=== PATIENT | female | born 1960 | race Caucasian/White ===

== ENCOUNTER 2018-09-29 19:52 | Inpatient (IN) ==
--- NOTE | 2018-09-29 20:14 | ERNOTE ---
Neuro HPI ER Record Presenting Symptoms: other - medication overdose Time Seen by Provider: 09/29/18 20:00 Source: patient Exam Limitations: clinical condition Immunizations: IMMUNIZATION HX Immunizations Up to Date Yes History of Influenza Vaccine No Hx Pneumococcal Vaccination No Allergies/Adverse Reactions: Allergies Allergy/AdvReac Type Severity Reaction Status Date / Time acetaminophen Allergy Hives Verified 08/04/18 10:44 [Darvocet-N 100] propoxyphene [Darvocet-N 100] Allergy Hives Verified 08/04/18 10:44 gabapentin AdvReac Hallucinations. Verified 09/06/18 11:29 Bad dreams ibuprofen AdvReac at high Verified 09/06/18 11:29 doses causes GI upset pregabalin [From Lyrica] AdvReac Swelling Verified 09/06/18 11:29 all over venlafaxine [From Effexor] AdvReac Makes Verified 09/06/18 11:29 depression worse Home Medications: HOME MEDICATIONS Lansoprazole [Prevacid] 30 mg PO DAILY 04/02/15 [Last Taken Unknown] Atenolol [Tenormin] 50 mg PO BID 11/06/15 [Last Taken Unknown] amitriptyline 25 mg tablet 25 mg PO BID 10/12/17 [Last Taken Unknown] amlodipine 5 mg tablet 5 mg PO DAILY 10/12/17 [Last Taken Unknown] naproxen 500 mg tablet 500 mg PO BID 10/12/17 [Last Taken Unknown] omeprazole 20 mg capsule,delayed release 20 mg PO DAILY 10/12/17 [Last Taken Unknown] oxygen-air delivery systems device See Dose Instructions .ROUTE .MEDSUPPLY #1 10/12/17 [Last Taken Unknown] polyethylene glycol 3350 17 gram/dose oral powder 17 g PO DAILY g 10/12/17 [Last Taken Unknown] psyllium seed (sugar) oral powder See Rx Instructions PO DAILY 10/12/17 [Last Taken Unknown] cyclobenzaprine 10 mg tablet 10 mg PO HS #30 tab 08/04/18 [Last Taken Unknown] hydroxyzine pamoate 25 mg capsule 25 mg PO TID #90 cap 08/30/18 [Last Taken Unknown] hydroxyzine pamoate 50 mg capsule 50 mg PO TID #90 cap 08/30/18 [Last Taken Unknown] quetiapine 100 mg tablet 150 mg PO HS #45 tab 09/06/18 [Last Taken Unknown] dextroamphetamine-amphetamine 20 mg tablet 20 mg PO BID #60 tab 09/12/18 [Last Taken Unknown] brexpiprazole 3 mg tablet See Rx Instructions .ROUTE .COMPLEX #30 tablet 09/29/18 [Last Taken Unknown] duloxetine 20 mg capsule,delayed release See Rx Instructions .ROUTE .COMPLEX #60 capsule 09/29/18 [Last Taken Unknown] ropinirole 4 mg tablet See Rx Instructions .ROUTE .COMPLEX #90 tablet 09/29/18 [Last Taken Unknown] - History of Present Illness Narrative: Patient was brought in by EMS with history of seizure-like activity and found on arrival that she was excessively somnolent. Patient was recently had surgery and it appeared that she may have taken excessive amounts of her pain medication. EMS gave her Narcan in the ambulance and this did help her to wake up. She did have some emesis and there is concern that she also had aspiration. Patient had a 400 mil bottle of oxycodone 5 mg per 5 mil prescribed to her approximately 54 hours ago and she has consumed 310 mils for approximately 35 mils every 6 hours on average. Onset: gradual onset Severity: severe - Character of Deficits Additional Deficits: Present: impaired speech, off balance Baseline Cognition: Present: alert, oriented x 4 Baseline Gait: Present: walks w/o assistance Associated Symptoms: Reports: altered mental status, disoriented, confused Review of Systems - Narrative Narrative: Patient gives a lot of "I do not know" answers, even has difficulty remembering the surgery that she had 2 days ago - Review of Systems Constitutional: Present: chills ENT: Present: sore throat Respiratory: Present: shortness of breath Gastrointestinal/Abdominal: Present: vomiting - per EMS. Medical History (Updated 09/29/18 @ 21:45 by Benson Jack DO) Bipolar disorder (Chronic) Attention deficit disorder of adult with hyperactivity (Chronic) Generalized anxiety disorder (Chronic) Borderline personality disorder (Chronic) Bipolar affective disorder, current episode depressed (Chronic) Anxiety Arthritis Attention deficit hyperactivity disorder (ADHD) Back injury Back pain Bipolar affective disorder Bipolar disorder Borderline personality disorder Depression Diabetes mellitus Fibromyalgia Headache Hypertension Insomnia due to mental disorder Major depressive disorder, recurrent episode Neuropathic pain Obsessive compulsive disorder Psychosis Restless leg syndrome Thoracic spine pain Anemia Anorexia Hypokalemia Opioid withdrawal Paranoid schizophrenia (Resolved) Sinusitis, acute Surgical History: Surgical History (Updated 10/12/17 @ 17:53 by Krystal Lau LPN) H/O section H/O tubal ligation History of cholecystectomy History of neck surgery History of oophorectomy Hx of colonoscopy Family History: Family History (Updated 10/12/17 @ 17:55 by Krystal Lau LPN) Father CVA (cerebral vascular accident) Heart disease Hypertension Kidney disease Bleeding disorder Diabetes Mother Heart disease Hypertension FH: mental illness Diabetes Cancer Thyroid disease Brother FH: mental illness Social History: Preferred Language [place] Citizen Do you have any mu-ism or No cultural preference? Smoking Status Current every day smoker Abuse History Hx of Substance Use Psych History Hx of Anxiety,Hx of Depression,Hx of Suicide Attempt,Hx of Psychiatric Tx,Currently on Meds Alcohol Use none Drug Use none (Last Updated 09/06/18 @ 11:40 by Alla Jose [facility]) No Social History Section defined Physical Exam - Physical Exam General Appearance: Present: wd/wn, mild distress, lethargic Head Exam: Present: normal inspection, no evidence of injury Eye Exam: Normal inspection: bilateral Neck: Present: normal inspection, nontender Respiratory: Present: no accessory muscle use, wheezing Cardiovascular/Chest: Present: regular rate, rhythm, no murmur Extremity Exam: Present: normal inspection, normal range of motion Neurological Exam: Present: disoriented to place, disoriented to situation - improving over time Skin Exam: Present: normal color, warm/dry Lymphatic Exam: Present: no adenopathy [place] Coma Scale - Assess Eye Opening: Spontaneous Motor: Obeys Commands Verbal: Confused - Total Coma Scale Total: 14 Progress - Results and Orders Patient's Lab Results:: I have reviewed the patient's lab results. Results and Orders: Laboratory Tests 09/29/18 09/29/18 09/29/18 20:45 20:45 21:14 WBC 14.8 H Hgb 12.7 Hct 40.4 Plt Count 245 Neutrophils % 84.3 H Sodium 139 Potassium 4.5 Chloride 103 BUN 22 Creatinine 1.32 Random Glucose 206 H Calcium 9.3 Total Bilirubin 0.4 AST 368 H ALT 284 H Urine Color Yellow Urine Appearance Clear Urine pH 6.0 Ur Specific [place] 1.010 Urine Protein Negative Urine Glucose (UA) 100 H Urine Ketones Negative Urine Blood Negative Urine Nitrate Negative Ur Leukocyte Esterase Negative Salicylates 7.3 Urine Opiates Screen Acetaminophen Less than 0.2 L Barbiturate Screen Ur Phencyclidine Scrn Urine Amphetamine U Benzodiazepines Scrn Urine Cocaine Screen Urine Marijuana (THC) Ethyl Alcohol Less than 3.0 09/29/18 21:14 WBC Hgb Hct Plt Count Neutrophils % Sodium Potassium Chloride BUN Creatinine Random Glucose Calcium Total Bilirubin AST ALT Urine Color Urine Appearance Urine pH Ur Specific [place] Urine Protein Urine Glucose (UA) Urine Ketones Urine Blood Urine Nitrate Ur Leukocyte Esterase Salicylates Urine Opiates Screen Positive H Acetaminophen Barbiturate Screen Negative Ur Phencyclidine Scrn Negative Urine Amphetamine Negative U Benzodiazepines Scrn Positive H Urine Cocaine Screen Negative Urine Marijuana (THC) Negative Ethyl Alcohol - Vital Signs Vital Signs: Vital Signs 09/29/18 19:53 Temperature 36.4 C Pulse Rate 107 H Respiratory Rate 14 Blood Pressure 178/114 H O2 Sat by Pulse Oximetry 87 L - EKG EKG #1 EKG: NSR, no ST T wave changes EKG read: Interp. by me - X-Ray X-Ray #1 X-Ray: chest Interpretation: Interp. by me X-ray Comments: small hiatal hernia. possible aspiration right lower lobe. - Progress/Reassessment Chief Complaint: Seizure Activity Progress:: Improved Progress Note-Subjective: Pt memory and orientation improving. 09/29/18 21:[address] Richards she agrees with observation admit. 09/29/18 21:[address] Llamas of the admission on his surgical patient. He stated he will come see the patient here tomorrow. 09/29/18 22:22 Departure Clinical Impression: Hypoxia Accidental medication overdose Qualifiers: Encounter type: initial encounter Qualified Code(s): T50.901A - Poisoning by unspecified drugs, medicaments and biological substances, accidental (unintentional), initial encounter - Departure Disposition: Still a patient Condition: Stable
[2018-09-29 20:51] LABS: Hematocrit 40.4 % (37.0-47.0); Hemoglobin 12.7 gm/dL (12.5-16.0); Mean Cell Volume 94.6 fl (78-100); Mean Corpuscular Hemoglobin 29.7 pg (27-31); Mean Corpuscular Hgb Conc 31.4 g/dl (32-36); Mean Platelet Volume 9.8 fl (8-12.5); Neutrophil # 12.4 K/mm3 (1.3-6.0); Neutrophil % 84.3 % (42-75.0); Platelet Count 245 K/mm3 (150-450); Red Blood Count 4.27 M/mm3 (4.2-5.4); Red Cell Distribution Width 14.1 % (11.5-14.0); White Blood Count 14.8 K/mm3 (4.0-10.5)
[2018-09-29 21:14] LABS: ALT 284 U/L (19-67); AST 368 U/L (0-48); Albumin * 3.7 gm/dl (3.4-5.0); Alkaline Phosphatase * 137 U/L (50-170); Anion Gap 14.7 mmol/L (6.8-13.8); BUN/Creatinine Ratio 16.7 (9.0-21.6); Bilirubin, Total 0.4 mg/dL (0.0-1.1); Blood Urea Nitrogen 22 mg/dL (3-23); Ca. Corrected For Albumin 9.2 mg/dL (8.4-10.2); Calcium * 9.3 mg/dL (7.9-10.9); Carbon Dioxide 25.8 mmol/L (24-32.6); Chloride 103 mmol/L (97-106); Glucose * 206 mg/dL (70-110); Potassium 4.5 mmol/L (3.4-4.6); Salicylate 7.3 mg/dL (2.8-20.0); Sodium 139 mmol/L (132-142); Total Protein 7.2 gm/dL (6.2-8.2)
[2018-09-29 21:25] LABS: Urine Bilirubin Negative (NEGATIVE); Urine Blood Negative /ul (NEGATIVE); Urine Ketone Negative (NEGATIVE); Urine Nitrite Negative (NEGATIVE); Urine Protein Negative (NEGATIVE); Urine Urobilinogen Normal (NORMAL)
[2018-09-29 21:32] LABS: Urine Appearance Clear (CLEAR); Urine Bacteria None Seen; Urine Color Yellow; Urine RBC None Seen /hpf (0-5); Urine WBC None Seen /hpf (0-5)
[2018-09-29 21:45] LABS: Cocaine Ur Negative (NEGATIVE); Urine Barbiturate Negative (NEGATIVE); Urine Benzodiazepines Positive (NEGATIVE); Urine Opiates Positive (NEGATIVE); Urine PCP Negative (NEGATIVE); Urine THC Negative (NEGATIVE)
[2018-09-30 06:02] LABS: Albumin * 3.2 gm/dl (3.4-5.0); Anion Gap 9.9 mmol/L (6.8-13.8); BUN/Creatinine Ratio 18.1 (9.0-21.6); Bilirubin, Total 1.5 mg/dL (0.0-1.1); Ca. Corrected For Albumin 8.7 mg/dL (8.4-10.2); Calcium * 8.4 mg/dL (7.9-10.9); Carbon Dioxide 30.5 mmol/L (24-32.6); Potassium 4.4 mmol/L (3.4-4.6); Total Protein 6.6 gm/dL (6.2-8.2)
[2018-09-30 06:08] LABS: Hematocrit 35.3 % (37.0-47.0); Hemoglobin 11.4 gm/dL (12.5-16.0); Mean Cell Volume 94.4 fl (78-100); Mean Corpuscular Hemoglobin 30.5 pg (27-31); Mean Corpuscular Hgb Conc 32.3 g/dl (32-36); Mean Platelet Volume 9.8 fl (8-12.5); Neutrophil # 9.8 K/mm3 (1.3-6.0); Neutrophil % 85.2 % (42-75.0); Platelet Count 222 K/mm3 (150-450); Red Blood Count 3.74 M/mm3 (4.2-5.4); White Blood Count 11.5 K/mm3 (4.0-10.5)
--- NOTE | 2018-09-30 10:14 | HP ---
Chief Complaint - Chief Complaint Date of Service: 09/30/18 Time of Service: 09:43 Chief Complaint: overdose History of Present Illness: Patient with PMHx of bipolar disorder, depression, chronic back pain had a recent procedure 09/27/18 on her tonsils. EMS was called for possible seizure activity, and she was very somnolent. She did wake with narcan. She was given a 400 cc bottle of 5 mg/5 ml morphine after that procedure, and EMS reported only 91 cc remaining. She did not require further narcan in our ED. UDS was positive for opiates and benzos, but she is not prescribed benzos. PDMP checked, and she has not filled a benzo prescription. She was somnolent, but able to answer questions. She was able to oxygenate with 6 L via oxymask, and used her CPAP overnight. Admission labs show a few abnormalities with WBC of 14.8, AST of 368, ALT 284. Repeat labs this morning show WBC improved to 11.5, AST and ALT further increased to 448 and 399, respectively, bili elevated to 1.5, and alk phos increased to 183. On my exam this morning, she is alert and able to answer questions, but does not remember what happened yesterday. She admits to probably using her morphine too often to stop her throat pain. She also reports RUQ pain that started this morning. She was vomiting phlegm in the ambulance yesterday, but was able to eat breakfast this morning. Medical History (Updated 09/30/18 @ 10:14 by Jennifer Richards DO) Bipolar disorder (Chronic) Attention deficit disorder of adult with hyperactivity (Chronic) Generalized anxiety disorder (Chronic) Borderline personality disorder (Chronic) Bipolar affective disorder, current episode depressed (Chronic) Anxiety Arthritis Attention deficit hyperactivity disorder (ADHD) Back injury Back pain Bipolar affective disorder Bipolar disorder Borderline personality disorder Depression Diabetes mellitus Fibromyalgia Headache Hypertension Insomnia due to mental disorder Major depressive disorder, recurrent episode Neuropathic pain Obsessive compulsive disorder Psychosis Restless leg syndrome Thoracic spine pain Anemia Anorexia Hypokalemia Opioid withdrawal Paranoid schizophrenia (Resolved) Sinusitis, acute Surgical History: Surgical History (Updated 09/30/18 @ 10:14 by Jennifer Richards DO) H/O section H/O tubal ligation History of cholecystectomy History of neck surgery History of oophorectomy Hx of colonoscopy Family History: Family History (Updated 10/12/17 @ 17:55 by Krystal Lau LPN) Father CVA (cerebral vascular accident) Heart disease Hypertension Kidney disease Bleeding disorder Diabetes Mother Heart disease Hypertension FH: mental illness Diabetes Cancer Thyroid disease Brother FH: mental illness Social History: Patient Lives/Resources w/family Utilized Preferred Language [place] Do you have any gnosticist or Yes: Denominational cultural preference? Smoking Status Current every day smoker Have you smoked in the past 12 Yes months Do you dip or chew tobacco No Abuse History Hx of Substance Use Psych History Hx of Anxiety,Hx of Depression,Hx of Suicide Attempt,Hx of Psychiatric Tx,Currently on Meds Alcohol Use none Drug Use none (Last Updated 09/06/18 @ 11:40 by JULISSA Castro) No Social History Section defined Review Of Systems (GEN) - Review of Systems Generalized/Overall Review: Present: Diaphoresis - chronic. Absent: Fever EENTM: Present: Nose Congestion, Throat Pain Respiratory: Absent: Cough, Shortness of Breath Cardiac: Present: Edema - chronic. Absent: Chest Pain Abdominal: Present: Nausea, Vomiting Genitourinary: Present: No Symptoms Reported Musculoskeletal: Present: Back Pain Neurological: Present: Headache Skin: Present: No Symptoms Reported Immunizations: IMMUNIZATION HX Immunizations Up to Date Yes History of Influenza Vaccine No Hx Pneumococcal Vaccination No Allergies/Adverse Reactions: Allergies Allergy/AdvReac Type Severity Reaction Status Date / Time acetaminophen Allergy Hives Verified 08/04/18 10:44 [Darvocet-N 100] propoxyphene [Darvocet-N 100] Allergy Hives Verified 08/04/18 10:44 gabapentin AdvReac Hallucinations. Verified 09/06/18 11:29 Bad dreams ibuprofen AdvReac at high Verified 09/06/18 11:29 doses causes GI upset pregabalin [From Lyrica] AdvReac Swelling Verified 09/06/18 11:29 all over venlafaxine [From Effexor] AdvReac Makes Verified 09/06/18 11:29 depression worse Home Medications: HOME MEDICATIONS Atenolol [Tenormin] 50 mg PO BID 11/06/15 [Last Taken Unknown] amlodipine 5 mg tablet 5 mg PO DAILY 10/12/17 [Last Taken Unknown] naproxen 500 mg tablet 500 mg PO BID 10/12/17 [Last Taken Unknown] omeprazole 20 mg capsule,delayed release 20 mg PO DAILY 10/12/17 [Last Taken Unknown] oxygen-air delivery systems device See Dose Instructions .ROUTE .MEDSUPPLY #1 10/12/17 [Last Taken Unknown] polyethylene glycol 3350 17 gram/dose oral powder 17 g PO DAILY g 10/12/17 [Last Taken Unknown] psyllium seed (sugar) oral powder See Rx Instructions PO DAILY 10/12/17 [Last Taken Unknown] cyclobenzaprine 10 mg tablet 10 mg PO HS #30 tab 08/04/18 [Last Taken Unknown] hydroxyzine pamoate 25 mg capsule 25 mg PO TID #90 cap 08/30/18 [Last Taken Unknown] hydroxyzine pamoate 50 mg capsule 50 mg PO TID #90 cap 08/30/18 [Last Taken Unknown] quetiapine 100 mg tablet 150 mg PO HS #45 tab 09/06/18 [Last Taken Unknown] dextroamphetamine-amphetamine 20 mg tablet 20 mg PO BID #60 tab 09/12/18 [Last Taken Unknown] brexpiprazole 3 mg tablet See Rx Instructions .ROUTE .COMPLEX #30 tablet 09/29/18 [Last Taken Unknown] duloxetine 20 mg capsule,delayed release See Rx Instructions .ROUTE .COMPLEX #60 capsule 09/29/18 [Last Taken Unknown] ropinirole 4 mg tablet See Rx Instructions .ROUTE .COMPLEX #90 tablet 09/29/18 [Last Taken Unknown] Exam - Exam Vital Signs: Vital Signs - Last Taken Temp 36.8 C 09/30/18 06:50 Pulse 97 09/30/18 06:50 Resp 18 09/30/18 06:50 BP 141/81 H 09/30/18 06:50 Pulse Ox 97 09/30/18 06:50 Constitutional: Present: Alert, Cooperative, Obese ENT Exam: Present: dry mucous membranes, other Neck: Present: lymphadenopathy (L) Respiratory: Present: lungs clear, normal breath sounds, no respiratory distress Cardiovascular/Chest: Present: regular rate, rhythm Abdomen: Present: Normal bowel sounds, obese, tender - RUQ Extremity: Present: lower extremity edema - 1+ bilaterally to the mid lower leg Neurologic: Present: normal mood/affect Eye contact: Present: cooperative Diagnostic Studies: Abnormal Lab Results 09/29/18 09/29/18 09/29/18 Range/Units 20:45 20:45 21:14 WBC 14.8 H (4.0-10.5) K/mm3 RBC (4.2-5.4) M/mm3 Hgb (12.5-16.0) gm/dL Hct (37.0-47.0) % MCHC 31.4 L (32-36) g/dl RDW 14.1 H (11.5-14.0) % Immature Gran % (Auto) 0.50 H (0.001-0.429) % Immature Gran # (Auto) 0.08 H (0.000-0.0310) K/mm3 Neutrophils % 84.3 H (42-75.0) % Lymphocytes % 9.0 L (20-51) % Neutrophils # 12.4 H (1.3-6.0) K/mm3 Lymphocytes # 1.33 L (1.5-3.5) k/mm3 Anion Gap 14.7 H (6.8-13.8) mmol/L Est GFR (Non-Af Amer) 44 L D (60-130) mL/min Random Glucose 206 H (70-110) mg/dL Total Bilirubin (0.0-1.1) mg/dL AST 368 H (0-48) U/L ALT 284 H (19-67) U/L Alkaline Phosphatase (50-170) U/L Albumin (3.4-5.0) gm/dl Urine Glucose (UA) 100 H (NEGATIVE) mg/dL Urine Opiates Screen (NEGATIVE) Acetaminophen Less than 0.2 L (10.0-30.0) mcg/mL U Benzodiazepines Scrn (NEGATIVE) 09/29/18 09/30/18 09/30/18 Range/Units 21:14 05:42 05:42 WBC 11.5 H D (4.0-10.5) K/mm3 RBC 3.74 L (4.2-5.4) M/mm3 Hgb 11.4 L (12.5-16.0) gm/dL Hct 35.3 L (37.0-47.0) % MCHC (32-36) g/dl RDW (11.5-14.0) % Immature Gran % (Auto) (0.001-0.429) % Immature Gran # (Auto) 0.05 H (0.000-0.0310) K/mm3 Neutrophils % 85.2 H (42-75.0) % Lymphocytes % 8.5 L (20-51) % Neutrophils # 9.8 H (1.3-6.0) K/mm3 Lymphocytes # 0.97 L (1.5-3.5) k/mm3 Anion Gap (6.8-13.8) mmol/L Est GFR (Non-Af Amer) 57 L D (60-130) mL/min Random Glucose 123 H D (70-110) mg/dL Total Bilirubin 1.5 H (0.0-1.1) mg/dL AST 448 H (0-48) U/L ALT 399 H (19-67) U/L Alkaline Phosphatase 183 H (50-170) U/L Albumin 3.2 L (3.4-5.0) gm/dl Urine Glucose (UA) (NEGATIVE) mg/dL Urine Opiates Screen Positive H (NEGATIVE) Acetaminophen (10.0-30.0) mcg/mL U Benzodiazepines Scrn Positive H (NEGATIVE) Laboratory Results WBC 11.5 K/mm3 (4.0-10.5) H D 09/30/18 05:42 RBC 3.74 M/mm3 (4.2-5.4) L 09/30/18 05:42 Hgb 11.4 gm/dL (12.5-16.0) L 09/30/18 05:42 Hct 35.3 % (37.0-47.0) L 09/30/18 05:42 MCV 94.4 fl (78-100) 09/30/18 05:42 MCH 30.5 pg (27-31) 09/30/18 05:42 MCHC 32.3 g/dl (32-36) 09/30/18 05:42 RDW 14.0 % (11.5-14.0) 09/30/18 05:42 Plt Count 222 K/mm3 (150-450) 09/30/18 05:42 MPV 9.8 fl (8-12.5) 09/30/18 05:42 Immature Gran % (Auto) 0.40 % (0.001-0.429) 09/30/18 05:42 Immature Gran # (Auto) 0.05 K/mm3 (0.000-0.0310) H 09/30/18 05:42 85.2 % (42-75.0) H 09/30/18 05:42 8.5 % (20-51) L 09/30/18 05:42 4.7 % (0.0-9) 09/30/18 05:42 1.0 % (0.0-3.0) 09/30/18 05:42 0.2 % (0.0-1.0) 09/30/18 05:42 Nucleated RBC % 0.0 k/mm3 (0-1) 09/30/18 05:42 9.8 K/mm3 (1.3-6.0) H 09/30/18 05:42 0.97 k/mm3 (1.5-3.5) L 09/30/18 05:42 0.5 k/mm3 (0.0-1.0) 09/30/18 05:42 0.1 k/mm3 (0.0-0.7) 09/30/18 05:42 Absolute Basophils 0.0 k/mm3 (0.0-0.1) 09/30/18 05:42 Sodium 140 mmol/L (132-142) 09/30/18 05:42 140 mmol/L (130-142) 09/30/18 05:42 Potassium 4.4 mmol/L (3.4-4.6) 09/30/18 05:42 Chloride 104 mmol/L (97-106) 09/30/18 05:42 Carbon Dioxide 30.5 mmol/L (24-32.6) 09/30/18 05:42 9.9 mmol/L (6.8-13.8) 09/30/18 05:42 BUN 19 mg/dL (3-23) 09/30/18 05:42 1.05 mg/dL (0.4-1.4) 09/30/18 05:42 Est GFR (Non-Af Amer) 57 mL/min (60-130) L D 09/30/18 05:42 18.1 (9.0-21.6) 09/30/18 05:42 123 mg/dL (70-110) H D 09/30/18 05:42 Calcium 8.4 mg/dL (7.9-10.9) 09/30/18 05:42 Calcium Adj for Albumin 8.7 mg/dL (8.4-10.2) 09/30/18 05:42 1.5 mg/dL (0.0-1.1) H 09/30/18 05:42 AST 448 U/L (0-48) H 09/30/18 05:42 ALT 399 U/L (19-67) H 09/30/18 05:42 183 U/L (50-170) H 09/30/18 05:42 6.6 gm/dL (6.2-8.2) 09/30/18 05:42 3.2 gm/dl (3.4-5.0) L 09/30/18 05:42 Yellow 09/29/18 21:14 Clear (CLEAR) 09/29/18 21:14 6.0 pH (5.0-7.0) 09/29/18 21:14 Ur Specific [place] 1.010 SP.GR. (1.005-1.010) 09/29/18 21:14 Negative mg/dL (NEGATIVE) 09/29/18 21:14 100 mg/dL (NEGATIVE) H 09/29/18 21:14 Negative mg/dL (NEGATIVE) 09/29/18 21:14 Negative /ul (NEGATIVE) 09/29/18 21:14 Negative (NEGATIVE) 09/29/18 21:14 Negative mg/dl (NEGATIVE) 09/29/18 21:14 Normal EU/dl (NORMAL) 09/29/18 21:14 Ur Leukocyte Esterase Negative /ul (NEGATIVE) 09/29/18 21:14 None seen /hpf (0-5) 09/29/18 21:14 None seen /hpf (0-5) 09/29/18 21:14 Ur Epithelial Cells 0-5 /hpf (0-5) 09/29/18 21:14 None seen (NONE) 09/29/18 21:14 No culture indicated 09/29/18 21:14 Salicylates 5.9 mg/dL (2.8-20.0) 09/30/18 02:05 Positive (NEGATIVE) H 09/29/18 21:14 Acetaminophen Less than 0.2 mcg/mL (10.0-30.0) L 09/29/18 20:45 Negative (NEGATIVE) 09/29/18 21:14 Ur Phencyclidine Scrn Negative (NEGATIVE) 09/29/18 21:14 Urine Amphetamine Negative (NEGATIVE) 09/29/18 21:14 U Benzodiazepines Scrn Positive (NEGATIVE) H 09/29/18 21:14 Negative (NEGATIVE) 09/29/18 21:14 Negative (NEGATIVE) 09/29/18 21:14 Ethyl Alcohol Less than 3.0 mg/dL (0.0-10.0) 09/29/18 20:45 Assessment/Plan - Assessment/Plan (1) Accidental medication overdose Assessment: She admits to probably taking too much morphine for her post-op throat pain. She is alert and oxygenating well this morning, so her OD is resolved. Problem: Resolved Qualifiers: Encounter type: initial encounter Qualified Code(s): T50.901A - Poisoning by unspecified drugs, medicaments and biological substances, accidental (unintentional), initial encounter (2) Elevated transaminase level Assessment: Abdominal US pending for this afternoon. AST, ALT increased from yesterday, and bili and alk phos are now also increased. She is having some RUQ pain this morning. There is a chance this could have been from biliary spasm from high dose narcotic use. Problem: Acute (3) Post-op pain Assessment: She underwent a procedure on her tonsils on 09/27/18, and used most of her 400 cc bottle of morphine in 2 days. ED note states Dr. Llamas will be coming by to see her today, and will verify this. Problem: Acute (4) Bipolar disorder Assessment: With her elevated transaminases, will hold home meds for now. Problem: Chronic Qualifiers: (5) Borderline personality disorder Problem: Chronic (6) Edema Assessment: She reports chronic edema. Will order GUERRERO hose, and give her 40 mg daily lasix po. Problem: Acute (7) Chronic pain Assessment: Will hold pain meds due to her OD. Problem: Chronic
[2018-09-30] MEDS: FUROSEMIDE 40 MG TABLET PO SCH (10:57)
[2018-09-30] MEDS: NICOTINE 21 MG PATC TD SCH (10:57)
[2018-09-30] MEDS ORDERED: DULoxetine HCL 20 MG CAPSULE.SA PO SCH (11:45)
[2018-09-30] MEDS: NAPROXEN 500 MG TABLET PO SCH (11:52)
[2018-09-30] MEDS: traMADol HCL 50 MG TABLET PO PRN ×2 (12:22→18:54)
[2018-09-30] MEDS: amLODIPine BESYLATE 5 MG TABLET PO SCH (12:23)
[2018-09-30] MEDS: ATENOLOL 50 MG TABLET PO SCH ×2 (12:25→21:32)
[2018-09-30 13:31] LABS: Prothrombin Time (Patient) 9.8 Seconds (9.1-10.7)
[2018-09-30 13:35] LABS: INR 0.99 INR (0.92-1.08)
[2018-09-30] MEDS ORDERED: NORMAL SALINE 1,000 ML IV ONE (15:26)
[2018-09-30] MEDS: POLYETHYLENE GLYCOL 3350 17 GM PACKET PO SCH (15:53)
--- NOTE | 2018-09-30 15:55 | PN ---
Progess Note - Interim Date: 09/30/18 Time: 15:45 Narrative: 09/30/18 15:45 Reviewed patient's med list. Naproxen, duloxetine, and quetiapine could increase her AST and ALT, and will hold these. The combination of these chronic meds, with potential biliary spasm, are the likely source of her lab abnormalities. Brexpiprazole is to be given carefully if CrCl is less than 60, so will hold this for now. US showed fatty liver. INR was not increased, so there is less concern for liver failure. Since she is unaware of what she took yesterday, and there are unprescribed benzos in her UDS, I am unsure of what meds she took yesterday. She also asked her ENT for more pain meds yesterday, even though her newly diagnosed liquid oxycodone bottle was almost depleted. Will continue to watch her tonight. I would like her RUQ pain to improve. GGT, hepatitis panel, repeat CMP and CBC pending for the morning. She does not feel well this afternoon, and will give her a NS bolus.
[2018-10-01] MEDS: traMADol HCL 50 MG TABLET PO PRN (02:20)
[2018-10-01 07:25] LABS: Hematocrit 38.8 % (37.0-47.0); Hemoglobin 12.8 gm/dL (12.5-16.0); Mean Cell Volume 88.6 fl (78-100); Mean Corpuscular Hemoglobin 29.2 pg (27-31); Mean Platelet Volume 9.7 fl (8-12.5); Neutrophil # 19.3 K/mm3 (1.3-6.0); Neutrophil % 87.1 % (42-75.0); Platelet Count 258 K/mm3 (150-450); Red Blood Count 4.38 M/mm3 (4.2-5.4); Red Cell Distribution Width 13.3 % (11.5-14.0); White Blood Count 22.1 K/mm3 (4.0-10.5)
[2018-10-01 07:39] LABS: BUN/Creatinine Ratio 12.8 (9.0-21.6); Bilirubin, Total 2.8 mg/dL (0.0-1.1); Ca. Corrected For Albumin 9.9 mg/dL (8.4-10.2); Calcium * 9.4 mg/dL (7.9-10.9); Carbon Dioxide 27.1 mmol/L (24-32.6); Potassium 3.1 mmol/L (3.4-4.6); Total Protein 7.5 gm/dL (6.2-8.2)
[2018-10-01] MEDS ORDERED: DULoxetine HCL 20 MG CAPSULE.SA PO SCH (09:15)
[2018-10-01] MEDS: AMOX TR/POTASSIUM CLAVULANATE 875 MG TABLET PO SCH ×2 (09:21→20:18)
[2018-10-01] MEDS: NICOTINE 21 MG PATC TD SCH (09:22)
[2018-10-01] MEDS: POLYETHYLENE GLYCOL 3350 17 GM PACKET PO SCH (09:22)
[2018-10-01] MEDS: ATENOLOL 50 MG TABLET PO SCH ×2 (09:23→20:21)
[2018-10-01] MEDS: amLODIPine BESYLATE 5 MG TABLET PO SCH (09:23)
[2018-10-01] MEDS: FUROSEMIDE 40 MG TABLET PO SCH (09:24)
--- NOTE | 2018-10-01 09:43 | PN ---
Subjective - Date and Time Seen Date: 10/01/18 Time: 08:54 Subjective Narrative: Her abdominal pain has resolved. She is coughing thick mucus, and still profusely sweating. She reports feeling miserable. She is drinking fluids, but is having difficulty eating because of her throat pain. She is able to ambulate to the bathroom. Objective - Review of Systems Generalized/Overall Review: Denies: Fever EENTM: Reports: Throat Pain Respiratory: Reports: Cough. Denies: Shortness of Breath Cardiac: Reports: Edema. Denies: Chest Pain Abdominal: Denies: Nausea, Diarrhea Genitourinary Symptoms: Reports: No Symptoms Reported Musculoskeletal Complaints: Reports: Back Pain Skin: Reports: No Symptoms Reported - Vitals Vitals: Last Vital Signs Temp 36.9 C 10/01/18 06:57 Pulse 78 10/01/18 06:57 Resp 20 10/01/18 06:57 BP 173/86 H 10/01/18 06:57 Pulse Ox 100 10/01/18 06:57 - Abnormal Lab Findings Abnormal Lab Findings: Abnormal Lab Results 09/30/18 10/01/18 10/01/18 Range/Units 12:07 07:17 07:17 WBC 22.1 H D (4.0-10.5) K/mm3 Immature Gran % (Auto) 0.80 H (0.001-0.429) % Immature Gran # (Auto) 0.18 H (0.000-0.0310) K/mm3 Neutrophils % 87.1 H (42-75.0) % Lymphocytes % 5.0 L (20-51) % Neutrophils # 19.3 H (1.3-6.0) K/mm3 Lymphocytes # 1.11 L (1.5-3.5) k/mm3 Monocytes # 1.1 H (0.0-1.0) k/mm3 Potassium 3.1 L D (3.4-4.6) mmol/L Anion Gap 15.0 H (6.8-13.8) mmol/L Random Glucose 128 H (70-110) mg/dL Total Bilirubin 2.8 H (0.0-1.1) mg/dL GGT 337 H (4-104) U/L AST 153 H (0-48) U/L ALT 280 H (19-67) U/L Alkaline Phosphatase 236 H (50-170) U/L Albumin 3.0 L (3.4-5.0) gm/dl Acetaminophen Less than 0.2 L (10.0-30.0) mcg/mL - Exam Constitutional: Present: Alert, Obese ENT Exam: Present: dry mucous membranes, other - bilateral pharyngeal white- yellow slough Respiratory: Present: lungs clear, normal breath sounds Cardiovascular/Chest: Present: regular rate, rhythm Abdomen: Present: Normal bowel sounds, soft, nontender, obese Extremity: Present: other - GUERRERO hose in place Skin Exam: Present: diaphoresis Appearance: Present: other - appears uncomfortable Eye contact: Present: good eye contact Assessment/Plan - Problems/Diagnosis (1) Accidental medication overdose Problem: Resolved Qualifiers: Encounter type: initial encounter Qualified Code(s): T50.901A - Poisoning by unspecified drugs, medicaments and biological substances, accidental (unintentional), initial encounter Narrative: Her mentation and respiratory status have recovered. She was prescribed 400 cc of 5 mg/5ml liquid oxycodone after surgery on 09/27, and was taking it more frequently than prescribed due to throat pain. Admission UDS positive for narcotics and benzos, but a PDMP review shows she was not prescribed benzos, and she denies taking them. Acetaminophen and salicylates were not elevated. She does not remember the events that led to her ED visit and admission. This OD, however, seems to have led to hepatitis. (2) Elevated transaminase level Problem: Acute Narrative: Recovering, but her GGT is elevated. I do not have a comparison level to see if that is an improvement or worsening. Bilirubin is greater than yesterday, up to 2.8 from 1.5. US abdomen yesterday showed fatty infiltrate. Gilbert's disease included in differential, but less likely with her elevated transaminases and alk phos. She denies alcohol use. LDH pending. I suspect biliary spasm from excess narcotic use. (3) Post-op pain Problem: Acute Narrative: She had an unknown procedure on her tonsils on 09/27/18. She does have surgical changes on exam. (4) Bipolar disorder Problem: Chronic Qualifiers: Narrative: Restart home seroquel, brexpiprazole, cymbalta. (5) Borderline personality disorder Problem: Chronic Narrative: Resume home brexpiprazole. (6) Edema Problem: Chronic Narrative: Continue daily 40 mg lasix. (7) Chronic pain Problem: Chronic Narrative: She reports being on chronic narcotics via a pain clinic, which is verified with PDMP. Using the Clinical Opiate Withdrawal Score, she scores for mild withdrawal for sweating, restlessness, discomfort. Now that her kidney function has recovered, and her transaminases are recovering, will resume home 5 mg oxycodone. Resume cyclobenzaprine. She reports her back pain is secondary to previous back surgery, which made her pain worse. She states PT has not been helpful. (8) Leukocytosis Problem: Acute Narrative: Will repeat CXR since she is coughing. She may have aspirated when her mentation was decreased. Augmentin has been started. (9) Hypokalemia Problem: Acute Narrative: K+ of 3.1 today. Will replace with 20mEq KDur bid and recheck in the morning.
[2018-10-01] MEDS: hydrOXYzine PAMOATE 25 MG CAPSULE PO SCH ×2 (12:15→16:18)
[2018-10-01] MEDS: oxyCODONE HCL 5 MG TABLET PO PRN ×2 (12:17→18:33)
[2018-10-01] MEDS: POTASSIUM CHLORIDE 20 MEQ TABLET.SA PO SCH (16:18)
[2018-10-01] MEDS: NAPROXEN 500 MG TABLET PO SCH (20:18)
[2018-10-01] MEDS ORDERED: CYCLOBENZAPRINE HCL 10 MG TABLET PO SCH (21:00)
[2018-10-01] MEDS ORDERED: QUEtiapine FUMARATE 100 MG TABLET PO SCH ×2 (21:00)
[2018-10-01] MEDS ORDERED: QUEtiapine FUMARATE 25 MG TABLET PO SCH (21:00)
[2018-10-01] MEDS ORDERED: BREXPIPRAZOLE 3 MG PO SCH (21:00)
[2018-10-02 07:17] LABS: Hematocrit 39.7 % (37.0-47.0); Hemoglobin 13.6 gm/dL (12.5-16.0); Mean Cell Volume 88.4 fl (78-100); Mean Corpuscular Hemoglobin 30.3 pg (27-31); Mean Corpuscular Hgb Conc 34.3 g/dl (32-36); Mean Platelet Volume 9.1 fl (8-12.5); Neutrophil # 14.8 K/mm3 (1.3-6.0); Neutrophil % 78.9 % (42-75.0); Platelet Count 294 K/mm3 (150-450); Red Blood Count 4.49 M/mm3 (4.2-5.4); Red Cell Distribution Width 13.7 % (11.5-14.0); White Blood Count 18.7 K/mm3 (4.0-10.5)
[2018-10-02] MEDS: oxyCODONE HCL 5 MG TABLET PO PRN (07:17)
[2018-10-02 07:38] LABS: Albumin * 2.8 gm/dl (3.4-5.0); Anion Gap 13.6 mmol/L (6.8-13.8); BUN/Creatinine Ratio 14.3 (9.0-21.6); Bilirubin, Total 1.4 mg/dL (0.0-1.1); Calcium * 9.4 mg/dL (7.9-10.9); Carbon Dioxide 27.7 mmol/L (24-32.6); Potassium 3.3 mmol/L (3.4-4.6); Total Protein 7.5 gm/dL (6.2-8.2)
--- NOTE | 2018-10-02 09:34 | DS ---
(1) Accidental medication overdose Problem: Resolved Qualifiers: Encounter type: initial encounter Qualified Code(s): T50.901A - Poisoning by unspecified drugs, medicaments and biological substances, accidental (unintentional), initial encounter (2) Elevated transaminase level Problem: Resolved (3) Post-op pain Problem: Acute (4) Bipolar disorder Problem: Chronic Qualifiers: (5) Borderline personality disorder Problem: Chronic (6) Edema Problem: Chronic (7) Chronic pain Problem: Chronic (8) Leukocytosis Problem: Acute (9) Hypokalemia Problem: Acute Description of Stay: Patient with PMHx of bipolar disorder, depression, chronic back pain had a recent procedure 09/27/18 on her tonsils. On 09/29, EMS was called for possible seizure activity, and she was very somnolent. She did wake with narcan via EMS, and did not require further doses in our ED. She was given a 400 cc bottle of 5 mg/5 ml morphine after that procedure, and EMS reported only 91 cc remaining. Per her ENT, she also asked for more pain meds on 09/29. UDS was positive for opiates and benzos, but she is not prescribed benzos. PDMP checked, and she has not filled a benzo prescription. She was somnolent, but able to answer questions during admission H&P the morning after admission. She was able to oxygenate with 6 L via oxymask, and used her CPAP overnight. Admission labs show a few abnormalities with WBC of 14.8, AST of 368, ALT 284. Repeat labs this morning show WBC improved to 11.5, AST and ALT further increased to 448 and 399, respectively, bili elevated to 1.5, and alk phos increased to 183. During the H&P, she was alert and able to answer questions, but does not remember what happened prior to EMS being called. She admits to probably using her oxycodone too often to stop her throat pain. She also reports RUQ pain that started the morning after admission. US of her abdomen was checked, which showed fatty liver. No extra hepatic biliary ductal dilation. GGT and LDH were also elevated. Throughout her stay, her abdominal pain resolved, and her transaminases and bili levels improved. The elevations were felt to be secondary to biliary spasm from accidental opiate overdose. On 10/01, she had significant diaphoresis, was restless, and had generalized discomfort, which was likely due to opiate withdrawal. She is prescribed chronic narcotics, and due to her OD, these were held the first 2 days of admission. On the day of DC, these symptoms had resolved. She may benefit from opiate addiction treatment, however she states her pain mgt physician has stated she is ok with continuing those meds. Cherry reports taking them for back pain that did not resolve with surgery. She does not have oxycodone tablets left at home, so a week's worth of meds will be sent to her pharmacy. Counseling was provided regarding post op pain, and she was advised to use her meds with caution. Also on 10/01, she developed a cough. WBC increased to 22, up from 11 the day prior. She was started on augmentin, and CXR did show a PNA in her right middle lobe. The pneumonia was likely from aspiration during her accidental overdose. Medication changes were the addition of augmentin for a 5 day course, extension of her home oxycodone for one week to allow time for her to see her pain mgt provider, and the addition of potassium for mild hypokalemia. Procedures Performed: none Results and Findings: Pending Mircobiology Results 09/29/18 21:15 Blood Blood Culture - Preliminary NO GROWTH AFTER 48 HOURS 09/29/18 20:45 Blood Blood Culture - Preliminary NO GROWTH AFTER 48 HOURS Lab Pending Results 09/29/18 20:45: WBC 14.8 H, RBC 4.27, Hgb 12.7, Hct 40.4, MCV 94.6, MCH 29.7, MCHC 31.4 L, RDW 14.1 H, Plt Count 245, MPV 9.8, Immature Gran % (Auto) 0.50 H, Immature Gran # (Auto) 0.08 H, Neutrophils % 84.3 H, Lymphocytes % 9.0 L, Monocytes % 5.2, Eosinophils % 0.7, Basophils % 0.3, Nucleated RBC % 0.0, Neutrophils # 12.4 H, Lymphocytes # 1.33 L, Monocytes # 0.8, Eosinophils # 0.1, Absolute Basophils 0.0 09/29/18 20:45: Sodium 139, Plasma Sodium 141, Potassium 4.5, Chloride 103, Carbon Dioxide 25.8, Anion Gap 14.7 H, BUN 22, Creatinine 1.32, Est GFR (Non-Af Amer) 44 L D, BUN/Creatinine Ratio 16.7, Random Glucose 206 H, Calcium 9.3, Calcium Adj for Albumin 9.2, Total Bilirubin 0.4, AST 368 H, ALT 284 H, Alkaline Phosphatase 137, Total Protein 7.2, Albumin 3.7, Salicylates 7.3, Acetaminophen Less than 0.2 L, Ethyl Alcohol Less than 3.0 09/29/18 21:14: Urine Color Yellow, Urine Appearance Clear, Urine pH 6.0, Ur Specific Juliette 1.010, Urine Protein Negative, Urine Glucose (UA) 100 H, Urine Ketones Negative, Urine Blood Negative, Urine Nitrate Negative, Urine Bilirubin Negative, Urine Urobilinogen Normal, Ur Leukocyte Esterase Negative, Urine RBC None seen, Urine WBC None seen, Ur Epithelial Cells 0-5, Urine Bacteria None seen, Urine Culture Comments No culture indicated 09/29/18 21:14: Urine Opiates Screen Positive H, Barbiturate Screen Negative, Ur Phencyclidine Scrn Negative, Urine Amphetamine Negative, U Benzodiazepines Scrn Positive H, Urine Cocaine Screen Negative, Urine Marijuana (THC) Negative 09/30/18 02:05: Salicylates 5.9 09/30/18 05:30: PT 9.8, INR (Anticoag Therapy) 0.99 09/30/18 05:42: WBC 11.5 H D, RBC 3.74 L, Hgb 11.4 L, Hct 35.3 L, MCV 94.4, MCH 30.5, MCHC 32.3, RDW 14.0, Plt Count 222, MPV 9.8, Immature Gran % (Auto) 0.40, Immature Gran # (Auto) 0.05 H, Neutrophils % 85.2 H, Lymphocytes % 8.5 L, Monocytes % 4.7, Eosinophils % 1.0, Basophils % 0.2, Nucleated RBC % 0.0, Neutrophils # 9.8 H, Lymphocytes # 0.97 L, Monocytes # 0.5, Eosinophils # 0.1, Absolute Basophils 0.0 09/30/18 05:42: Sodium 140, Plasma Sodium 140, Potassium 4.4, Chloride 104, Carbon Dioxide 30.5, Anion Gap 9.9, BUN 19, Creatinine 1.05, Est GFR (Non-Af Amer) 57 L D, BUN/Creatinine Ratio 18.1, Random Glucose 123 H D, Calcium 8.4, Calcium Adj for Albumin 8.7, Total Bilirubin 1.5 H, AST 448 H, ALT 399 H, Alkaline Phosphatase 183 H, Total Protein 6.6, Albumin 3.2 L 09/30/18 12:05: Salicylates 2.8 09/30/18 12:07: Acetaminophen Less than 0.2 L 10/01/18 07:17: WBC 22.1 H D, RBC 4.38, Hgb 12.8, Hct 38.8, MCV 88.6, MCH 29.2, MCHC 33.0, RDW 13.3, Plt Count 258, MPV 9.7, Immature Gran % (Auto) 0.80 H, Immature Gran # (Auto) 0.18 H, Neutrophils % 87.1 H, Lymphocytes % 5.0 L, Mo nocytes % 5.0, Eosinophils % 1.9, Basophils % 0.2, Nucleated RBC % 0.0, Neutrophils # 19.3 H, Lymphocytes # 1.11 L, Monocytes # 1.1 H, Eosinophils # 0.4, Absolute Basophils 0.1 10/01/18 07:17: Sodium 138, Plasma Sodium 138, Potassium 3.1 L D, Chloride 99, Carbon Dioxide 27.1, Anion Gap 15.0 H, BUN 10, Creatinine 0.78, Est GFR (Non-Af Amer) 81 D, BUN/Creatinine Ratio 12.8, Random Glucose 128 H, Calcium 9.4, Calcium Adj for Albumin 9.9, Total Bilirubin 2.8 H, GGT 337 H, AST 153 H, ALT 280 H, Alkaline Phosphatase 236 H, Total Protein 7.5, Albumin 3.0 L 10/01/18 07:17: Procalcitonin 0.38 10/01/18 07:17: Lactate Dehydrogenase 336 H 10/02/18 07:11: WBC 18.7 H, RBC 4.49, Hgb 13.6, Hct 39.7, MCV 88.4, MCH 30.3, MCHC 34.3, RDW 13.7, Plt Count 294, MPV 9.1, Immature Gran % (Auto) 1.30 H, Immature Gran # (Auto) 0.24 H, Neutrophils % 78.9 H, Lymphocytes % 6.7 L, Monocytes % 7.5, Eosinophils % 5.3 H, Basophils % 0.3, Nucleated RBC % 0.0, Neutrophils # 14.8 H, Lymphocytes # 1.26 L, Monocytes # 1.4 H, Eosinophils # 1.0 H, Absolute Basophils 0.1 10/02/18 07:11: Sodium 140, Plasma Sodium 140, Potassium 3.3 L, Chloride 102, Carbon Dioxide 27.7, Anion Gap 13.6, BUN 15, Creatinine 1.05, Est GFR (Non-Af Amer) 57 L D, BUN/Creatinine Ratio 14.3, Random Glucose 124 H, Calcium 9.4, Calcium Adj for Albumin 10.0, Total Bilirubin 1.4 H, AST 43, ALT 166 H, Alkaline Phosphatase 210 H, Total Protein 7.5, Albumin 2.8 L Discharge Location: Home Disposition: Home self-care Condition: Good Discharge Activity: Activity as tolerated Discharge Diet: General/regular food, Other - Encourage fluid intake Referrals: Arnie Alcantara MD [Primary Care Provider] - One Week (Please schedule for October 06 or (patient needs two days notice prior to appt to arrange transportation)) Problem Oriented Discharge Instructions to Patient/Family: Smoking Cessation, Tips for Success, [id number], Accidental Overdose Additional Patient Instructions (free text): Resume services with [facility]. Please call report and fax orders upon discharge. Phone: [phone]. Prescriptions (Any new or edited meds): Amox Tr/Potassium Clavulanate [Augmentin 875-125 Tablet] 875 mg PO BID #7 tab Potassium Chloride [K-Dur] 20 meq PO BIDWM #30 tablet.sa oxyCODONE HCL [Oxycodone] 5 mg PO Q8H PRN #21 tab PRN Reason: Pain Complete Home Medications List: Complete Home Medication List: Atenolol [Tenormin] 50 mg PO BID 11/06/15 amlodipine 5 mg tablet 5 mg PO DAILY 10/12/17 naproxen 500 mg tablet 500 mg PO BID 10/12/17 omeprazole 20 mg capsule,delayed release 20 mg PO DAILY 10/12/17 oxygen-air delivery systems device See Dose Instructions .ROUTE .MEDSUPPLY #1 10/12/17 polyethylene glycol 3350 17 gram/dose oral powder 17 g PO DAILY g 10/12/17 psyllium seed (sugar) oral powder See Rx Instructions PO DAILY 10/12/17 cyclobenzaprine 10 mg tablet 10 mg PO HS #30 tab 08/04/18 hydroxyzine pamoate 25 mg capsule 25 mg PO TID #90 cap 08/30/18 hydroxyzine pamoate 50 mg capsule 50 mg PO TID #90 cap 08/30/18 quetiapine 100 mg tablet 150 mg PO HS #45 tab 09/06/18 dextroamphetamine-amphetamine 20 mg tablet 20 mg PO BID #60 tab 09/12/18 Brexpiprazole [Rexulti] 3 mg PO HS 09/30/18 DULoxetine HCL [Cymbalta] 20 mg PO BID 09/30/18 rOPINIRole HCL [Requip] 4 mg PO TID 09/30/18 Amox Tr/Potassium Clavulanate [Augmentin 875-125 Tablet] 875 mg PO BID #7 tab 10/02/18 DULoxetine HCL [Cymbalta] 20 mg PO BID capsule.sa 10/02/18 Potassium Chloride [K-Dur] 20 meq PO BIDWM #30 tablet. 10/02/18 oxyCODONE HCL [Oxycodone] 5 mg PO Q8H PRN #21 tab 10/02/18
[2018-10-02] MEDS: POTASSIUM CHLORIDE 20 MEQ TABLET.SA PO SCH (09:44)
[2018-10-02] MEDS: AMOX TR/POTASSIUM CLAVULANATE 875 MG TABLET PO SCH (09:44)
[2018-10-02] MEDS: POLYETHYLENE GLYCOL 3350 17 GM PACKET PO SCH (09:44)
[2018-10-02] MEDS: FUROSEMIDE 40 MG TABLET PO SCH (09:44)
[2018-10-02] MEDS: NAPROXEN 500 MG TABLET PO SCH (09:44)
[2018-10-02] MEDS: amLODIPine BESYLATE 5 MG TABLET PO SCH (09:44)
[2018-10-02] MEDS: NICOTINE 21 MG PATC TD SCH (09:45)
[2018-10-02] MEDS: hydrOXYzine PAMOATE 25 MG CAPSULE PO SCH (09:45)
[2018-10-02] MEDS: ATENOLOL 50 MG TABLET PO SCH (09:45)
[2018-10-02 11:01] VITALS: BP 136/82
[2018-10-03 15:10] LABS: Hepatitis C Antibody NON-REACTIVE (NON-REACTIVE); Hepatitis Panel Confirmation DNR
[2018-10-03 15:12] LABS: Hepatitis A IgM Antibody NON-REACTIVE (NON-REACTIVE)
[2018-10-03 15:13] LABS: Hepatitis B Surface Antigen NON-REACTIVE (NON-REACTIVE)
== END 2018-10-02 11:05 | disposition home or self-care (01) | DRG 918 ==
LOC: ER 19:52 → MS 19:52
PROVIDERS: ADMIT Family Medicine; ATTEND Family Medicine
DX: R09.02 Hypoxemia; F60.3 Borderline personality disorder; R74.0 Nonspecific elevation of levels of transaminase and lactic acid dehydrogenase [LDH]; I10 Essential (primary) hypertension; E87.6 Hypokalemia; D72.829 Elevated white blood cell count, unspecified; T50.901A Poisoning by unspecified drugs, medicaments and biological substances, accidental (unintentional), initial encounter; F31.9 Bipolar disorder, unspecified; G89.18 Other acute postprocedural pain; E11.9 Type 2 diabetes mellitus without complications; F17.210 Nicotine dependence, cigarettes, uncomplicated; R60.9 Edema, unspecified; G89.29 Other chronic pain
CPT/HCPCS: 36415; 71010; 71020; 71045; 71046; 76700; 80053; 80074; 80307; 80329; 81001; 82977; 83615; 84145; 85025; 85610; 87040; 93005; 94660; 94762; 96360; 96361; 99285; G0480

== ENCOUNTER 2019-09-18 08:14 | Inpatient (IN) ==
[~2019-09-18 08:14] MED LIST: MORPHINE SULFATE 15 MG TABLET.SA PO PRN; ROPIVACAINE HCL/PF 100 MG, EPINEPHrine 0.2 MG, KETOROLAC TROMETHAMINE 30 MG in NORMAL S... IJ PRN; TRANEXAMIC ACID 1,000 MG in NORMAL SALINE 100 ML IV PRN; ceFAZolin SODIUM 1 GM VIAL IV PRN
[2019-09-18] MEDS: RINGER'S SOLUTION,LACTATED 1,000 ML IV PRN ×3 (09:00→12:00)
[2019-09-18] MEDS ORDERED: BUPIVACAINE HCL/EPINEPHRINE 50 ML VIAL IJ ONE (09:06)
[2019-09-18] MEDS ORDERED: LIDOCAINE HCL 20 ML VIAL ONE (09:06)
[2019-09-18] MEDS ORDERED: BUPIVACAINE HCL/PF 10 ML VIAL ONE (09:06)
[2019-09-18] MEDS ORDERED: PROPOFOL VIAL IV ONE (09:06)
[2019-09-18] MEDS ORDERED: MIDAZOLAM HCL/PF 5 MG/ML VIAL ONE (09:06)
[2019-09-18] MEDS ORDERED: ceFAZolin SODIUM 1 GM VIAL ONE (09:30)
[2019-09-18] MEDS ORDERED: ISOPROPYL ALCOHOL 480 APPL BTL MC ONE (09:30)
--- NOTE | 2019-09-18 09:33 | ANES ---
Anesthesia Pre Procedure Eval Vitals/Labs: Last Vital Signs Temp 36.3 C 09/18/19 08:42 Pulse 92 09/18/19 08:42 Resp 18 09/18/19 08:42 BP 142/89 H 09/18/19 08:42 Pulse Ox 95 09/18/19 08:42 HOME MEDICATIONS naproxen 500 mg tablet 500 mg PO BID 10/12/17 [Last Taken Unknown] alendronate 70 mg tablet 70 mg PO BID tab 05/09/19 [Last Taken Unknown] atenolol 50 mg tablet 25 mg PO BID tab 05/09/19 [Last Taken Unknown] cyclobenzaprine 10 mg tablet 10 mg PO BID PRN tab 05/09/19 [Last Taken Unknown] morphine 15 mg tablet,extended release 15 mg PO Q12H 05/09/19 [Last Taken Unknown] naloxegol 25 mg tablet 25 mg PO DAILY 05/09/19 [Last Taken Unknown] pantoprazole 40 mg tablet,delayed release 40 mg PO DAILY 05/09/19 [Last Taken Unknown] sennosides 25 mg tablet 50 mg PO DAILY PRN tab 05/09/19 [Last Taken Unknown] Atorvastatin Calcium [Lipitor] 10 mg PO DAILY 05/31/19 [Last Taken Unknown] brexpiprazole 4 mg tablet 4 mg PO DAILY #30 tab 07/04/19 [Last Taken Unknown] duloxetine 30 mg capsule,delayed release 30 mg PO BID #60 cap 07/24/19 [Last Taken Unknown] quetiapine 200 mg tablet 200 mg PO HS #30 tab 08/10/19 [Last Taken Unknown] dextroamphetamine-amphetamine 20 mg tablet 20 mg PO BID #60 tab 08/24/19 [Last Taken Unknown] hydroxyzine pamoate 50 mg capsule 50 mg PO TID #90 cap 08/25/19 [Last Taken Unknown] quetiapine 50 mg tablet 50 mg PO HS #30 tab 08/25/19 [Last Taken Unknown] hydroxyzine pamoate 25 mg capsule 25 mg PO TID PRN #90 cap 09/06/19 [Last Taken Unknown] ropinirole 2 mg tablet 2 mg PO BID #60 tab 09/12/19 [Last Taken Unknown] Allergies/Adverse Reactions: Allergies Allergy/AdvReac Type Severity Reaction Status Date / Time [facility]ergy Intermediate Hives Verified 09/18/19 08:29 hydrocodone Allergy Mild sweating Verified 09/18/19 08:29 oxycodone Allergy Mild sweating Verified 09/18/19 08:29 propoxyphene [Darvocet-N 100] Allergy Hives Verified 09/18/19 08:29 sertraline Allergy hives Verified 09/18/19 08:29 acetaminophen AdvReac Mild Nausea Verified 09/18/19 08:29 gabapentin AdvReac Hallucinations. 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) Onset Date: Unknown Generalized anxiety disorder (Chronic) Onset Date: Unknown Borderline personality disorder (Chronic) Onset Date: Unknown Bipolar affective disorder, current episode depressed (Chronic) Onset Date: Unknown Anxiety Onset Date: Unknown Arthritis Onset Date: Unknown Attention deficit hyperactivity disorder (ADHD) Onset Date: Unknown Back injury Onset Date: Unknown Back pain Onset Date: Unknown Bipolar affective disorder Onset Date: Unknown Bipolar disorder Onset Date: Unknown Borderline personality disorder Onset Date: Unknown Depression Onset Date: Unknown Diabetes mellitus Onset Date: Unknown Fibromyalgia Onset Date: Unknown Headache Onset Date: Unknown Hypertension Onset Date: Unknown Insomnia due to mental disorder Onset Date: Unknown Major depressive disorder, recurrent episode Onset Date: Unknown Neuropathic pain Onset Date: Unknown Obsessive compulsive disorder Onset Date: Unknown Psychosis Onset Date: Unknown Restless leg syndrome Onset Date: Unknown Thoracic spine pain Onset Date: Unknown Anemia Onset Date: Unknown Anorexia Onset Date: Unknown Hypokalemia Onset Date: Unknown Opioid withdrawal Onset Date: Unknown Paranoid schizophrenia (Resolved) Sinusitis, acute Onset Date: Unknown Surgical History (Last Reviewed 09/18/19 @ 09:32 by Malik Pierre CRNA) History of back surgery Onset Date: Unknown L5 S1 fusion Dr. Mayes H/O section Onset Date: Unknown H/O tubal ligation Onset Date: Unknown History of cholecystectomy Onset Date: Unknown History of neck surgery Onset Date: Unknown History of oophorectomy Onset Date: Unknown Hx of colonoscopy Onset Date: Unknown Family History (Last Reviewed 09/18/19 @ 09:32 by Malik Pierre CRNA) Father CVA (cerebral vascular accident) Heart disease Hypertension Kidney disease Bleeding disorder Diabetes Mother Heart disease Hypertension FH: mental illness Diabetes Cancer Thyroid disease Brother FH: mental illness - Family Anesthesia History Family History:: no untoward family reactions to anesthesia - Airway/Neck/Teeth Within Normal Limits:: Yes Teeth Condition: intact Neck Exam: full range of motion Mallampatti Score: 2 Thyromental (T-M) distance: > 6 cm Mandibulo Hyoid distance: > 3 cm - Respiratory Respiratory Physical: lungs clear Smoking Status: Current every day smoker Discussed smoking cessation including day of surgery: Yes Sleep Apnea currently treated: No Sleep Apnea by current assessment: No - Cardiovascular Cardiac History: hypertension, hyperlipidemia Tolerate Activity: Fair Heart Sounds: S1 & S2, Regular - Gastrointestinal NPO since: [place] - Anesthesia Assessment and Plan ASA Class: PS, III Anesthesia Type Plan: Spinal - rt adductor canal block Planned difficult intubation/equipment available: No
[2019-09-18] MEDS ORDERED: MAG HYDROX/ALUMINUM HYD/SIMETH 30 ML UDC PO PRN (11:50)
[2019-09-18] MEDS ORDERED: diphenhydrAMINE HCL 50 MG/ML VIAL IV PRN (11:50)
[2019-09-18] MEDS ORDERED: ACETAMINOPHEN 500 MG TABLET PO PRN (11:50)
[2019-09-18] MEDS ORDERED: MAGNESIUM HYDROXIDE 30 ML UDC PO PRN (11:50)
[2019-09-18] MEDS ORDERED: ONDANSETRON HCL/PF 2 MG/ML VIAL IV PRN (11:50)
[2019-09-18] MEDS ORDERED: RINGER'S SOLUTION,LACTATED 1,000 ML IV PRN (11:50)
[2019-09-18] MEDS ORDERED: ZOLPIDEM TARTRATE 5 MG TABLET PO PRN (11:50)
[2019-09-18] MEDS ORDERED: hydrOXYzine PAMOATE 25 MG CAPSULE PO PRN (11:52)
[2019-09-18] MEDS ORDERED: CYCLOBENZAPRINE HCL 10 MG TABLET PO PRN (11:52)
--- NOTE | 2019-09-18 11:59 | OR ---
Operative Report - Dictated Report Narrative: Date: 09/18/2019 Preoperative diagnosis: Right knee degenerative joint disease. Postoperative diagnosis: Right knee degenerative joint disease. Procedure: Right total knee arthroplasty. Surgeon: Eliseo Mcqueen M.D. Solutions Architect Consultant: Kishor Timmons PA-C (provided and essential set of skilled, educated hands that assisted with transfer, positioning, prepping, draping, manipulation, retraction, placement of jigs, injection, insertion of implants, irrigation, closure wounds, and dressings all of which could not be performed by the available surgical crew) Anesthesia: Spinal with regional block and local periarticular joint injection. Complications: None Specimens: Bone. Estimated blood loss: Minimal. Tourniquet time: 85 Minutes at 300 millimeters of mercury. Retained implants: Depuy Attune size 6 narrow right lugged cemented posterior stabilized femoral component. Size 5 fixed-bearing cemented tibial platform. 6 by 5 millimeter posterior stabilized cross-linked tibial insert. 38 millimeter medialized patella button. Indications: Mrs. Sanchez is a 58-year-old female who has had longstanding right knee pain and arthrosis. This patient was followed in my clinic for period of time with significant complaints of right knee pain consistent with arthritic changes. She had failed conservative measures including, but not limited to, activity modification, passage of time, medications, and other conservative measures. Patient wished to proceed with surgical treatment. The risks, benefits, and alternatives were discussed in clinic. The risks of , blood clots, bleeding, infection, nerve/tendon blood vessel/ injury, malposition of components, intraoperative fracture, postoperative limited range of motion, persistent pain, failure of components, and need for additional procedures. Patient wished to proceed consent was obtained after answering all questions. Procedure: After marking the correct extremity on the floor, the patient was taken to the operating room. A timeout was performed. IV antibiotics consisting of Ancef were administered prior to the procedure. A regional followed by spinal anesthetic was induced by anesthesia, per my request, on the operative table with all bony prominences well-padded. Guerra catheter was placed, and a bump was placed under the operative side buttock. SCDs and GUERRERO hose were utilized on the nonoperative leg. A well-padded tourniquet was applied to the operative thigh. The operative leg was then pre-scrubbed with alcohol, prepped, and draped in a standard sterile fashion. After exsanguinating the extremity with an Esmarch bandage, the tourniquet was inflated. After marking out the anterior knee for standard incision centered over the patella, the skin was incised and dissected down to the joint retinaculum. The joint retinaculum was marked out as well as the horizontal axis of the patella, and a standard medial parapatellar arthrotomy was then made. The most proximal aspect of the quadriceps tendon and the patella tendon insertion were protected from release. A partial synovectomy was performed as well as a resection of the infrapatellar fat pad. The distal femoral fat pad proximal to the trochlea was also resected using cautery. The soft tissues were elevated off the medial aspect of the proximal tibia using a Vyas elevator ensuring that we did not transect the medial collateral ligament. Upon initial evaluation range of motion was approximately 0 degrees to 120 degrees of flexion. There were signs of advanced arthrosis in the medial and patellofemoral joints greater than the lateral joint spaces. There were large marginal osteophytes which were removed with a rongeur. The knee was hyperflexed and the patella was tucked laterally. Protecting the surrounding soft tissues with Homans, an entry drill was placed down the femoral canal using Whitesides line for guidance into the entry point. The intramedullary femoral alignment smii was utilized in order to cut the distal femur in 5 degrees of valgus resecting 10 millimeters of bone. Next the distal femur was sized to a size 6. A posterior referencing guide was utilized to place the distal femoral cutting block in 3 degrees of external rotation. This was pinned into place. The rotation was confirmed both visually and based on anatomic landmarks. The 4 in 1 cutting jig of the appropriate size was utilized in order to make all bony cuts. The lucia wing was used to ensure no notching. Retractors were utilized in order to protect surrounding soft tissues. This cut did not result in any excessive notching. We then cut the box centered over the distal femur. This allowed for resection of the anterior and posterior cruciate ligaments. I then turned my attention to the preparation of the tibia. Using an extra medullary tibial alignment simi, 5 millimeters of bone was resected off the medial articular surface. This was made perpendicular to the mechanical axis of the joint with the alignment simi centered over the ankle mortise. The alignment simi was checked and was noted to be parallel to the mechanical axis, centered over the medial one third of the tibial tubercle, paralleling the anterior surface of the tibia. We then turned our attention to the remaining meniscus and soft tissues. These were removed while protecting the surrounding ligaments and soft tissues. The marginal osteophytes off the anterior, posterior, medial, lateral aspects of the femur and tibia were removed. The tibia was sized out to a size 5. Next the tibia was drilled and punched in an externally rotated position. Next the trial femur and a series of tibial inserts were utilized in order to allow for full extension and maximal flexion. It was found that a 5 millimeter insert gave the best range of motion and stability at multiple flexion points as well as at full extension there was less than 2 mm of gapping both medially and laterally. There is minimal anterior translation with the knee at 90 degrees of flexion and no signs of being able to dislocate the knee. The patella was then prepared. The initial thickness was 24 millimeters. This was reamed down to 14 millimeters parallel to the anterior surface of the patella. It was sized out to a size 38 medialized patella button. This was then drilled and trialed. Without any medial restraint the patella tracked appropriately and did not sublux or dislocate. At this point, it was felt these were the appropriate sized implants, and all trials were removed. The standard periarticular joint injection consisting of ropivacaine, Toradol, and epinephrine were injected into the periarticular joint tissues. The bony surfaces were thoroughly irrigated with a pulsatile-suction saline irrigation device. A bone plug from the prior resected anterior chamfer cut was placed into the drill hole at the distal femur. The bony surfaces were then dried in preparation for placement of the implants. The cement was vacuum mixed per the biodiesel plant superintendent's instructions. The cement was placed on the dry bony surfaces and posterior aspect of the implants. The implants were impacted into place, removing all extruded cement. At this point anesthesia administered tranexamic acid per protocol intravenously. The knee was placed in extension with axial loading with the trial insert while the cement cured. Once the cement cured, all remaining extruded cement was removed. The knee was placed through a range of motion with the trial insert to ensure appropriate range of motion and stability. Final range of motion was approximately 0 to 120 degrees. The knee was again thoroughly irrigated with pulsatile saline lavage. The final polyethylene insert was then impacted into place ensuring no retained soft tissues. The remaining periarticular joint injection was injected. A medium Hemovac drain was placed exiting superior laterally. The knee was then placed over a triangle and the arthrotomy was closed with interrupted #1 Vicryl after thoroughly irrigating the joint. The deep and subcutaneous tissues were closed with interrupted 0 and 3-0 Vicryl respectively. Skin was closed with a running subcutaneous 3-0 Monocryl and Prineo Dermabond dressing. 4 x 4's, Sof-Rol, and a full leg Darnell wrap were applied. All sponge, needle, blade, and instrument counts were correct prior to closing the wounds. Postoperative condition: The patient was awoken and transferred to the postanesthesia care unit in stable condition. Plan is to be admitted to the inpatient medical/surgical floor postoperatively for 24 hours of IV antibiotics, physical therapy, occupational therapy, and medical comanagement. Patient will be weightbearing as tolerated with range of motion as tolerated. DVT prophylaxis will be with SCDs, GUERRERO hose, and pharmacological anticoagulation. Anticipated hospital stay is approximately 1-3 days.
--- NOTE | 2019-09-18 12:17 | ANES ---
Post Anesthesia Discharge - Transfer of Care Transfer of Care handoff given to nurse: Yes - Discharge from PACU Discharge from PACU when meets criteria: Yes
--- NOTE | 2019-09-18 12:20 | ANES ---
Anesthesia Procedure Note Procedure Note: ANESTHESIA PROCEDURE NOTE Date of procedure: 09/18/2019. Time of procedure: 1010. Performed by: Marin Pierre CRNA Pst Manager: Lo Burgess . Preprocedure diagnosis: Right knee DJD. Post procedure diagnosis: Same. Procedure: Ultrasound-guided right adductor canal block Indications: Post operative analgesia. Findings: Patient was brought operating room #2 and given a spinal anesthetic. The patient's right inner thigh was prepped with ChloraPrep. Ultrasound was utilized to identify the saphenous nerve in the right adductor canal. A 20- gauge 4 inch regional block needle was advanced under ultrasound guide until tip of needle was positioned just proximal to the saphenous nerve. A total of 30 mL of 0.25% Marcaine with epinephrine 1-200,000 was injected adequate spread of local anesthesia noted a around the nerve. Regional block needle was removed intact. EBL: Minimal. Fluids: N/A. Specimen: N/A. Post procedure condition: The patient tolerated the procedure well. No complications were noted. Thank you for this consultation Marin Pierre CRNA
--- NOTE | 2019-09-18 12:20 | ANES ---
Post Anesthesia Assessment - Vital Signs Vitals: Last Vital Signs Temp 36.6 C 09/18/19 12:10 Pulse 78 09/18/19 12:15 Resp 18 09/18/19 12:15 BP 89/56 L 09/18/19 12:15 Pulse Ox 96 09/18/19 12:15 Airway Patency: Normal - Mental Status Level Of Consciousness: Awake - Pain Level Pain Score: 0 - N/V Assessment Nausea/Vomiting Presence: None Dehydration:: No
[2019-09-18] MEDS: hydrOXYzine PAMOATE 50 MG CAPSULE PO SCH ×2 (13:13→16:49)
[2019-09-18] MEDS: ceFAZolin SODIUM 1 GM in DEXTROSE 5 % IN WATER 100 ML IV SCH ×4 (13:13→19:45)
[2019-09-18] MEDS: MORPHINE SULFATE 15 MG TABLET.SA PO SCH ×2 (13:19→19:45)
[2019-09-18] MEDS: NICOTINE 7 MG PATC TD SCH (14:26)
[2019-09-18] MEDS: MORPHINE SULFATE 10 MG/0.5 ML SYRINGE PO PRN ×2 (15:56→18:33)
[2019-09-18] MEDS: DULoxetine HCL 30 MG CAPSULE.SA PO SCH (21:04)
[2019-09-18] MEDS: ROSUVASTATIN CALCIUM 10 MG TABLET PO SCH (21:04)
[2019-09-18] MEDS: SENNOSIDES/DOCUSATE SODIUM 1 TAB TABLET PO SCH (21:05)
[2019-09-18] MEDS: rOPINIRole HCL 1 MG TABLET PO SCH (21:05)
[2019-09-18] MEDS: QUEtiapine FUMARATE 100 MG TABLET PO SCH (21:05)
[2019-09-18] MEDS: ATENOLOL 25 MG TABLET PO SCH (21:06)
[2019-09-18] MEDS: QUEtiapine FUMARATE 25 MG TABLET PO SCH (21:06)
[2019-09-19] MEDS: MORPHINE SULFATE 10 MG/0.5 ML SYRINGE PO PRN ×7 (01:37→22:19)
[2019-09-19] MEDS: ceFAZolin SODIUM 1 GM in DEXTROSE 5 % IN WATER 100 ML IV SCH ×2 (01:49)
[2019-09-19] MEDS: MORPHINE SULFATE 15 MG TABLET.SA PO SCH ×3 (04:15→20:21)
[2019-09-19 06:14] LABS: Hematocrit 33.1 % (37.0-47.0); Hemoglobin 10.7 gm/dL (12.5-16.0); Mean Cell Volume 90.2 fl (78-100); Mean Corpuscular Hemoglobin 29.2 pg (27-31); Mean Corpuscular Hgb Conc 32.3 g/dl (32-36); Mean Platelet Volume 9.5 fl (8-12.5); Platelet Count 230 K/mm3 (150-450); Red Blood Count 3.67 M/mm3 (4.2-5.4); Red Cell Distribution Width 13.5 % (11.5-14.0)
[2019-09-19 06:22] LABS: Anion Gap 9.8 mmol/L (6.8-13.8); BUN/Creatinine Ratio 12.4 (9.0-21.6); Calcium * 8.6 mg/dL (7.9-10.9); Carbon Dioxide 27.8 mmol/L (24-32.6); Estimated Creat Clear 50.2; Potassium 3.6 mmol/L (3.4-4.6)
[2019-09-19] MEDS: PANTOPRAZOLE SODIUM 40 MG TABLET.EC PO SCH (06:37)
[2019-09-19] MEDS: (Naloxegol Oxalate [Movantik] 25 MG) PO SCH (08:08)
[2019-09-19] MEDS: (Brexpiprazole [Rexulti] 4 MG) PO SCH (08:08)
[2019-09-19] MEDS: DULoxetine HCL 30 MG CAPSULE.SA PO SCH ×2 (08:28→20:23)
[2019-09-19] MEDS: hydrOXYzine PAMOATE 50 MG CAPSULE PO SCH ×3 (08:28→15:59)
[2019-09-19] MEDS: rOPINIRole HCL 1 MG TABLET PO SCH ×2 (08:28→20:21)
[2019-09-19] MEDS: ATENOLOL 25 MG TABLET PO SCH ×2 (08:29→20:22)
[2019-09-19] MEDS: ENOXAPARIN SODIUM 40 MG/0.4 ML SYRG SC SCH (10:17)
[2019-09-19] MEDS: NICOTINE 7 MG PATC TD SCH (14:49)
--- NOTE | 2019-09-19 16:17 | PN ---
Subjective - Date and Time Seen Date: 09/19/19 Time: 16:11 Subjective Narrative: Patient was seen by Dr. Mcqueen this morning. I am rechecking her this afternoon. She states that she has not slept well for the past 3 days. She states that she was too wore out to participate in therapy fully and did not do stairs today. She states that her pain continues to be around a 7 to a 9. She states she is more awake now and would be more up for therapy at this time. She reports no nausea. No chest pain or shortness of breath. Objective Objective Narrative: Patient is lying in bed comfortable she has her ice machine on. She has her GUERRERO hose on. Neurovascular intact right lower extremity. Calf supple. No significant drainage at this time. - Vitals Vitals: Last Vital Signs Temp 36.5 C 09/19/19 14:37 Pulse 74 09/19/19 14:37 Resp 18 09/19/19 14:37 BP 121/69 09/19/19 14:37 Pulse Ox 91 L 09/19/19 14:37 - Abnormal Lab Findings Abnormal Lab Findings: Abnormal Lab Results 09/19/19 09/19/19 Range/Units 06:05 06:05 RBC 3.67 L (4.2-5.4) M/mm3 Hgb 10.7 L (12.5-16.0) gm/dL Hct 33.1 L (37.0-47.0) % Est GFR (Non-Af Amer) 57 L (60-130) mL/min Random Glucose 122 H (70-110) mg/dL - Exam Constitutional: Present: Alert, Oriented x3, Cooperative, No distress Cauti Physician Documentation - Urinary Catheter Management Urethral (Guerra) Date of Insertion: 09/18/19 Time of Insertion: 10:20 Date of Removal: 09/19/19 Time of Removal: 05:10 Assessment/Plan - Problems/Diagnosis (1) Status post right knee replacement Problem: Acute Narrative: Patient has been slow to progress with therapy. I advised if she is too sedated with medications we need to back off on her pain medicines. She states that she was drowsy because of not getting sleep for the last 3 days with all the stress of thinking about surgery and her bipolar disorder and anxiety. She states that she feels more rested now and feels that she will be more able to participate in therapy tomorrow. Anticipate if she can progress with therapy tomorrow discharge. We will hold off on adjusting any pain medication dose at this time as long as she is alert enough to progress with therapy. Anticoagulation. Discussed with director social and nursing patient is going to need home health services as she lives alone and will need assistance with physical therapy as well as activities of daily living. She will not be able to drive a car for 6 weeks and does have transportation issues. (2) Acute blood loss anemia Problem: Acute Narrative: Asymptomatic at this point time continued observation. (3) Hepatitis Problem: Acute (4) Bipolar disorder Problem: Chronic Qualifiers: (5) Generalized anxiety disorder Problem: Chronic (6) Borderline personality disorder Problem: Chronic (7) Chronic pain Problem: Chronic
[2019-09-19] MEDS: SENNOSIDES/DOCUSATE SODIUM 1 TAB TABLET PO SCH (20:22)
[2019-09-19] MEDS: QUEtiapine FUMARATE 100 MG TABLET PO SCH (20:22)
[2019-09-19] MEDS: ROSUVASTATIN CALCIUM 10 MG TABLET PO SCH (20:22)
[2019-09-19] MEDS: QUEtiapine FUMARATE 25 MG TABLET PO SCH (20:22)
[2019-09-20] MEDS: MORPHINE SULFATE 15 MG TABLET.SA PO SCH ×2 (03:36→12:09)
[2019-09-20] MEDS: MORPHINE SULFATE 10 MG/0.5 ML SYRINGE PO PRN ×3 (03:37→09:00)
[2019-09-20] MEDS: PANTOPRAZOLE SODIUM 40 MG TABLET.EC PO SCH (06:55)
[2019-09-20] MEDS: hydrOXYzine PAMOATE 50 MG CAPSULE PO SCH ×2 (08:52→12:10)
[2019-09-20] MEDS: ATENOLOL 25 MG TABLET PO SCH (08:52)
[2019-09-20] MEDS: (Naloxegol Oxalate [Movantik] 25 MG) PO SCH (08:52)
[2019-09-20] MEDS: rOPINIRole HCL 1 MG TABLET PO SCH (08:52)
[2019-09-20] MEDS: DULoxetine HCL 30 MG CAPSULE.SA PO SCH (08:53)
[2019-09-20] MEDS: (Brexpiprazole [Rexulti] 4 MG) PO SCH (08:53)
[2019-09-20] MEDS: ENOXAPARIN SODIUM 40 MG/0.4 ML SYRG SC SCH (10:07)
--- NOTE | 2019-09-20 11:37 | DS ---
(1) COPD (chronic obstructive pulmonary disease) Problem: Chronic (2) Nicotine dependence Problem: Chronic (3) Hypertension Problem: Chronic (4) Acute blood loss anemia Problem: Acute (5) Status post right knee replacement Problem: Acute (6) Attention deficit disorder of adult with hyperactivity Problem: Chronic (7) Bipolar affective disorder, current episode depressed Problem: Chronic Qualifiers: Current episode severity: moderate Qualified Code(s): F31.32 - Bipolar disorder, current episode depressed, moderate (8) Bipolar disorder Problem: Chronic Qualifiers: (9) Borderline personality disorder Problem: Chronic (10) Chronic pain Problem: Chronic (11) Constipation Problem: Chronic Qualifiers: Constipation type: slow transit constipation Qualified Code(s): K59.01 - Slow transit constipation (12) Generalized anxiety disorder Problem: Chronic (13) GERD (gastroesophageal reflux disease) Problem: Chronic (14) ADHD (attention deficit hyperactivity disorder) Problem: Chronic (15) Paranoid schizophrenia Problem: Chronic (16) Obstructive sleep apnea Problem: Chronic (17) Hyperlipemia Problem: Chronic (18) Depression Problem: Chronic Date of Discharge:: 09/20/19 Hospital Course: Mrs. Sanchez was admitted to the floor after undergoing right total knee arthroplasty. Tolerated this well. Was admitted to the floor postoperatively for 24 hours of IV antibiotics, pain control, medical comanagement, and occupational and physical therapy. OT and PT were consulted to assist with activities of daily living and ambulation. Was made weightbearing as tolerated with range of motion as tolerated. Pain was initially controlled with IV r egimen. This was transitioned to oral once tolerating a by mouth intake. She was on chronic pain medicines and these were resumed as well. Was resumed on home diet and medications. A Guerra catheter was inserted in the operating room which was discontinued by postoperative day 1. A drain was placed intraoperatively into the knee which was discontinued on postoperative day 1. Lovenox, SCDs, and GUERRERO hose were utilized for DVT prophylaxis. Vital signs remained stable to the hospital course. Labs were obtained which showed a final hemoglobin of 10.7 grams. Pre-op hemoglobin was 13.4. She was asymptomic and thus the acute blood loss anemia will be monitored and treated clinically. BMP was reviewed and was stable. Physical examination throughout the hospital course showed an extremity that had sensation that was intact to light touch, palpable pulses, a benign wound, motor intact to the toes, ankle, and knee. Knee range of motion was approximately 0 degrees to 60 degrees. Once an oral pain regimen was tolerated and physical therapy goals were met, it was felt that they were stable for discharge to home. Lack of access to reliable transportation and well due to her limited mobility she is considered homebound and thus would benefit from home health. Nursing for wound management and management of her chronic conditions as well as physical therapy to assist with mobility, gait training, and monitoring of total knee arthroplasty. These services are directly related to this hospitalization. Instructions: Continue with weightbearing as tolerated and range of motion as tolerated. It is okay to shower and get the wound wet as long as there is no drainage from the wound. Do not bathe or soak the wound. If there is any drainage from the wound keep the wound clean and dry and cover with dry gauze and tape. Change every 2- 3 days as needed if there is any drainage. Cover wound while showering if there is any drainage. Continue with physical therapy. Resume home diet. Report any fever over 101.5 Fahrenheit, uncontrolled pain, increased drainage, foul odor of drainage, new or increased calf pain or shortness of breath, or any other significant complaints. A 325mg daily aspirin will be started after finishing anticoagulation if not allergic. Continue with GUERRERO hose on the operative extremity until instructed otherwise. No driving until instructed otherwise. Follow up in approximately 2-3 weeks. Procedures Performed: see notes below List Procedures: Right total knee arthroplasty Results and Findings: Lab Pending Results 09/19/19 06:05: WBC 8.0, RBC 3.67 L, Hgb 10.7 L, Hct 33.1 L, MCV 90.2, MCH 29.2, MCHC 32.3, RDW 13.5, Plt Count 230, MPV 9.5 09/19/19 06:05: Sodium 139, Plasma Sodium 139, Potassium 3.6, Chloride 105, Carbon Dioxide 27.8, Anion Gap 9.8, BUN 13, Creatinine 1.05, Est GFR (Non-Af Amer) 57 L, BUN/Creatinine Ratio 12.4, Random Glucose 122 H, Calcium 8.6 Discharge Location: Home Disposition: Home Health Service Condition: Good Discharge Activity: Activity as tolerated, Weight bearing Discharge Diet: General/regular food Referrals: Arnie Alcantara MD [Primary Care Provider] - Additional Patient Instructions (free text): [facility], please call and fax discharge orders to them. Please send demographics, and PT order to fax #[phone] . Follow up with Orthopedic in Dr. Mcqueen office WednesdayOctober 09 at 10:30a.m. Prescriptions (Any new or edited meds): Enoxaparin Sodium [Lovenox] 40 mg SC Q24H #7 disp.syrin Transmission Status: Pending to [facility] Morphine Sulfate 1 - 2 tab PO Q4H PRN #70 tab PRN Reason: chronic pain Transmission Status: Sent to [facility] Morphine Sulfate [Ms Contin] 15 mg PO Q8H #11 tablet.sa Transmission Status: Sent to [facility] Complete Home Medications List: Complete Home Medication List: naproxen 500 mg tablet 500 mg PO BID 10/12/17 alendronate 70 mg tablet 70 mg PO Q7D tab 05/09/19 atenolol 50 mg tablet 25 mg PO BID tab 05/09/19 cyclobenzaprine 10 mg tablet 10 mg PO BID PRN tab 05/09/19 morphine 15 mg tablet,extended release 15 mg PO Q12H 05/09/19 naloxegol 25 mg tablet 25 mg PO DAILY 05/09/19 pantoprazole 40 mg tablet,delayed release 40 mg PO DAILY 05/09/19 sennosides 25 mg tablet 50 mg PO DAILY PRN tab 05/09/19 Atorvastatin Calcium [Lipitor] 10 mg PO DAILY 05/31/19 brexpiprazole 4 mg tablet 4 mg PO DAILY #30 tab 07/04/19 duloxetine 30 mg capsule,delayed release 30 mg PO BID #60 cap 07/24/19 quetiapine 200 mg tablet 200 mg PO HS #30 tab 08/10/19 dextroamphetamine-amphetamine 20 mg tablet 20 mg PO BID #60 tab 08/24/19 hydroxyzine pamoate 50 mg capsule 50 mg PO TID #90 cap 08/25/19 quetiapine 50 mg tablet 50 mg PO HS #30 tab 08/25/19 hydroxyzine pamoate 25 mg capsule 25 mg PO TID PRN #90 cap 09/06/19 ropinirole 2 mg tablet 2 mg PO BID #60 tab 09/12/19 Enoxaparin Sodium [Lovenox] 40 mg SC Q24H #7 disp.syrin 09/20/19 Morphine Sulfate 1 - 2 tab PO Q4H PRN #70 tab 09/20/19 Morphine Sulfate [Ms Contin] 15 mg PO Q8H #11 tablet.sa 09/20/19 Forms: Patient Portal Registration
[2019-09-20] MEDS: NICOTINE 7 MG PATC TD SCH (15:07)
[2019-09-20 16:12] VITALS: BP 105/68
[2019-09-22] MEDS ORDERED: ALENDRONATE SODIUM 70 MG TABLET PO SCH (06:00)
== END 2019-09-20 16:11 | disposition home health service (06) | DRG 470 ==
LOC: MS 08:14 → EDSTATUS 11:30
PROVIDERS: ADMIT Orthopaedic Surgery; ATTEND Orthopaedic Surgery
CPT/HCPCS: 36415; 73560; 80048; 85027; 94660; 97110; 97116; 97161; 97165; 97535